=== PATIENT | male | born 1965 | race Caucasian/White ===

== ENCOUNTER 2022-09-24 13:15 | Outpatient (RCR) | payer OTHER, SELFPAY ==
--- NOTE | 2022-09-24 14:51 | PTOPEVAL1 ---
Assessment and note entered by Benny Mendez, PT, DPT Evaluation Information Assessment Status Evaluation Diagnosis cervicalgia Onset 1 year Subjective Information Pt reports currently a low level pain that feel tight. He states sometimes he get a sharp and shooting pain. He states he usually get a massage every 2 weeks. He states he had this pain last summer and it just went away on its own. He states the neck pain has been going on for about 3 months now. He states pain medication, Tylenol, and a muscle relaxer are not helping the pain. Pt is the [employer] on a [employer] and states this is a high stress job that might play a roll into his pain. Reported Pain Level Pain Score 3: Self Report Assessment PT Clinical Summary Conor presents to therapy today for his initial evaluation with a diagnosis of cervicalgia. Today he demonstrates decreased active cervical ROM in all directions with motions to the R being the most limited. He demonstrates good posture, good thoracic and cervical mobility. He was instructed in a HEP today and plans to continue with this on his own for a month or so and monitor his progress . If he is doing well, he will be discharged in a month. Plan of Care PT Services Indicated Yes Treatment Frequency and to follow up in one month if needed Duration These treatments will address the objective and functional deficits as defined above. The patient will be advanced safely and appropriately in order for the patient to progress towards his/her prior level of function. Additional exercises will be introduced and as well as a comprehensive home exercise program upon discharge, if needed, ?to ensure carryover of functional gains achieved in the clinic. This treatment plan has been reviewed and agreement upon by the patient.
--- NOTE | 2022-10-26 12:59 | PTOPDC ---
Assessment and note entered by Benny Mendez, PT, DPT Evaluation Information Assessment Status Discharge - Pt Not Present Diagnosis cervicalgia Onset 1 year Subjective Information Pt called and states he does not need to continue therapy. He states he does his HEP daily and it is really helping. Assessment PT Clinical Summary Pt was evaluated on 09/24/22 and has completed one month of his HEP. He will be discharged at this time per patient request. Plan of Care PT Services Indicated Yes
== END 2022-10-26 13:21 | disposition home or self-care (01) ==
LOC: ANHGOSHPT 13:15
DX: M62.838 Other muscle spasm (principal)
CPT/HCPCS: 97110; 97161

== ENCOUNTER 2024-11-29 09:01 | Emergency (ER) | payer OTHER, SELFPAY ==
[2024-11-29 09:12] VITALS: BP 126/59; PULSE 64; RESP 16; TEMP 36.6; O2SAT 100
--- NOTE | 2024-11-29 09:24 | ED_ITS ---
HPI - Wound/Laceration General Chief Complaint: Wound/Laceration Stated Complaint: Head Injuries Time Seen by Provider: 11/29/24 09:24 Source: patient Mode of arrival: ambulatory Limitations: no limitations History of Present Illness HPI narrative: 59-year-old male presents with laceration to left side of forehead. Injury happened approximately 1 hour prior to arrival. 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 Stood up and hit a metal bracket he had just installed. Denies headache, vision changes, nausea or vomiting. Denies LOC. bleeding controlled on arrival. All systems reviewed and negative except as noted above. Related Data Home Medications ?Medication ?Instructions ?Recorded ?Confirmed ?Last Taken ?Type acyclovir 400 mg tablet mg 11/29/24 Unknown History azathioprine 50 mg tablet mg 11/29/24 Unknown History fluorouracil 5 % topical cream applic topical 11/29/24 Unknown History Allergies Allergy/AdvReac Type Severity Reaction Status Date / Time No Known Allergies Allergy Verified 11/29/24 09:34 Review of Systems Review of Systems: CONSTITUTIONAL: Denies fever, chills, or sweats. EYES: Denies visual changes, redness, or discharge. ENT: Denies rhinorrhea, congestion, sore throat, or otalgia. CARDIOVASCULAR: Denies chest pain, palpitations, or edema. RESPIRATORY: Denies cough or dyspnea. GASTROINTESTINAL: Denies abdominal pain, nausea, vomiting, or diarrhea. GENITOURINARY: Denies dysuria or hematuria. SKIN: Denies rash or itching. Reports laceration to left side of forehead. MUSCULOSKELETAL: Denies back pain, joint pain, or myalgia. NEUROLOGIC: Denies headache, numbness, or weakness. PSYCHIATRIC: Denies anxiety or depression. All other systems reviewed are negative, except as documented in HPI. PMFSH Comments At time of signature, agree with nursing past medical, surgical, social and family history. There is no relevant family history pertinent to the presenting complaint. Exam Narrative: GENERAL: This is a well-nourished, well-developed patient, in no apparent distress. HEAD: normocephalic, atraumatic. EYES: PERRL. Sclera clear/white. Vision is grossly intact. EARS: External ears normal NOSE: External nose normal NECK: Neck supple, non-tender without lymphadenopathy, masses or thyromegaly. CARDIOVASCULAR: Regular rate and rhythm without murmurs, gallops, or rubs. RESPIRATORY: Clear to auscultation. Breath sounds equal bilaterally. No wheezes, rales, or rhonchi. SKIN: warm, Dry, intact with no suspicious lesions or rash, good texture and turgor. 1.5 superficial laceration to left side of forehead, bleeding controlled NEURO: awake, alert, and oriented to person, place and time. There were no obvious focal neurologic abnormalities. EXTREMITIES: No joint tenderness, effusion, or edema noted. Course Course Level of Care: Express Care Visit Vital Signs Vital signs: Vital Signs Temperature 36.6 C 11/29/24 09:12 Pulse Rate 64 11/29/24 09:12 Respiratory Rate 16 11/29/24 09:12 Blood Pressure 126/59 L 11/29/24 09:12 Pulse Oximetry 100 11/29/24 09:12 Temperature 36.6 C 11/29/24 09:12 Pulse Rate 64 11/29/24 09:12 Respiratory Rate 16 11/29/24 09:12 Blood Pressure 126/59 L 11/29/24 09:12 Pulse Oximetry 100 11/29/24 09:12 Reviewed Procedures Laceration Laceration 1: Date: 11/29/24 Time: 09:25 Site: scalp Side (If applicable): left Size (cm): 1.5 Description: linear Pre-repair: wound explored and irrigated ====== Skin Level ====== Skin layer closed with: dermabond and steri strips ====== Subcutaneous Layer ====== ====== Muscle Layer ====== ====== Tendon Layer ====== MDM - Wound/Laceration MDM Narrative Medical decision making narrative: Laceration repaired with skin adhesive and Steri-Strips. Recommend follow-up with primary care physician as needed. Metal bracket was brand new, tetanus up-to-date. Discharge Plan Discharge Clinical Impression: Laceration of forehead Qualifiers: Encounter type: initial encounter Qualified Code(s): S01.81XA - Laceration without foreign body of other part of head, initial encounter Patient Disposition: Home Condition: Stable Instructions: Skin Adhesive Care (ED), Skin Adhesive Strips (ED), Facial Laceration (ED) Additional Instructions: Keep skin adhesive and Steri-Strips dry. If they do become wet pat dry with a towel. Wear a shower cap when showering. Let skin adhesive and Steri-Strips fall off on their own. Do not pick or pull at them. To decrease scarring apply Aquaphor or Vaseline to wound after skin adhesive and Steri-Strips are no longer in place. If you have signs of infection such as redness, swelling, drainage follow-up with your primary care physician. Patient Language: Hungarian Prescriptions: No Action fluorouracil 5 % cream TOPICAL azathioprine 50 mg tablet acyclovir 400 mg tablet Follow-up/Referrals: PHYSICIAN,MORNING CAREGIVER [Primary Care Provider] - Time of Disposition: 09:34
== END 2024-11-29 09:36 | disposition home or self-care (01) ==
PROVIDERS: Emergency Provider Nurse Practitioner Family
DX: S01.81XA Laceration without foreign body of other part of head, initial encounter (principal); W22.8XXA Striking against or struck by other objects, initial encounter; E78.00 Pure hypercholesterolemia, unspecified
CPT/HCPCS: 12011; 99212; G0463